=== PATIENT | male | born 1965 ===

== ENCOUNTER 2016-09-23 21:53 | Emergency (ER) | payer OTHER ==
[2016-09-23 21:59] VITALS: BP 112/79; PULSE 89; TEMP 98.6; BMI 32.3
--- NOTE | 2016-09-23 22:38 | PDOC ---
History of Present Illness - General Chief Complaint: Pain Stated Complaint: RT 4TH TOE BRUISING Time Seen by Provider: 09/23/16 22:35 History Source: Patient Exam Limitations: No Limitations - History of Present Illness Initial Comments: 09/23/16 22:52 This is a 51-year-old male who comes in complaining of right foot fourth toe injury and pain. Patient stubbed his toe approximately 2 nights ago. Patient denies any other injury. Patient said it is gotten purple and he is concerned that it might be broken. PAST MEDICAL HISTORY: no significant history PAST SURGICAL HISTORY: no significant history FAMILY HISTORY: no pertinant history SOCIAL HISTORY: Pt lives with family and is employed. MEDICATIONS: reviewed ALLERGIES: As per nursing notes Review of Systems General: No fevers or chills, no weakness, no weight loss HEENT: No change in vision. No sore throat,. No ear pain CardioVascular: No chest pain or shortness of breath Respiratory:No cough, or wheezing. Gastrointestinal: no nausea, vomitting, diarrhea or constipation, No rectal bleeding Genitourinary: No dysuria, hematuria, or frequency Musculoskeletal: Right fourth toe as per history of present illness Neurologic: No headache, vertigo, dizziness or loss of consciousness Psychiatric: nor depression Skin: No rashes or easy bruising Endocrine: no increased thirst or abnormal weight change Allergic: no skin or latex allergy All other systems reviewed and normal GENERAL: The patient is awake, alert, and fully oriented, in no acute distress. HEAD: Normal with no signs of trauma. EYES: Pupils equal, round and reactive to light, extraocular movements intact, sclera anicteric, conjunctiva clear. EXTREMITIES: Right first toe there is moderate amount of ecchymosis with some tenderness over the mid section of the toe. Neurovascular is intact. There is decreased range of motion secondary to pain and swelling. NEUROLOGICAL: Normal speech, normal gait. PSYCH: Normal mood, normal affect. SKIN: Warm, Dry, normal turgor, no rashes or lesions noted. X-ray shows No acute fracture dislocation Assessment and plan: This is a 51-year-old male who comes in complaining of pain in his right fourth toe. Patient had x-ray was negative for any fracture. Patient's toe was ronna taped and he was discharged home. Past History - Past Medical History Allergies/Adverse Reactions: Allergies Allergy/AdvReac Type Severity Reaction Status Date / Time No Known Allergies Allergy Unverified 09/23/16 21:54 Home Medications: Ambulatory Orders NK [No Known Home Medication] 09/23/16 Other medical history: DENIES - Psycho/Social/Smoking Cessation Hx Anxiety: No Suicidal Ideation: No Smoking History: Never smoked *Physical Exam - Vital Signs Last Vital Signs Temp Pulse Resp BP Pulse Ox 98.6 F 89 16 112/79 98 09/23/16 21:57 09/23/16 21:57 09/23/16 21:57 09/23/16 21:57 09/23/16 21:57 *DC/Admit/Observation/Transfer Diagnosis at time of Disposition: Contusion of fourth toe of right foot Qualifiers: Encounter type: initial encounter Qualified Code(s): S90.121A - Contusion of right lesser toe(s) without damage to nail, initial encounter - Discharge Dispostion Disposition: HOME Condition at time of disposition: Stable Admit: No - Patient Instructions Additional Instructions: Tylenol or Motrin as needed for pain Ronna tape the toe for comfort as needed Wear open toed shoes as much as possible until toe is better Return to the emergency department immediately with ANY new, persistent or worsening symptoms. Continue any medications as previously prescribed by your physician. You should follow up with your primary doctor as soon as possible regarding today's emergency department visit. . Please make sure your doctor reviews the results of your emergency evaluation. Thank you for coming to the Emergency Department today for your care. It was a pleasure to see you today. Please note that your evaluation is INCOMPLETE until you follow-up with your doctor.
== END 2016-09-23 23:09 | disposition home or self-care (01) ==
LOC: FER 21:53
PROC: 2W3UXYZ Immobilization of Right Toe using Other Device (ICD-10-PCS; principal; 2016-09-23)
DX: S90.121A Contusion of right lesser toe(s) without damage to nail, initial encounter (principal); W22.01XA Walked into wall, initial encounter; Y93.89 Activity, other specified; Y92.9 Unspecified place or not applicable
CPT/HCPCS: 73660-TC; 99281-25

== ENCOUNTER 2020-01-14 08:08 | Inpatient (IN) | payer OTHER ==
[2020-01-14] MEDS ORDERED: MAG HYDROX/AL HYDROX/SIMETH -MYLANTA- ORAL SUSPENSION PO ONE (08:20)
[2020-01-14] MEDS ORDERED: FAMOTIDINE 20 MG/50 ML IVPB 20 MG in PREMIX 50 IVPB ONE (08:20)
[2020-01-14] MEDS ORDERED: ONDANSETRON 4 MG/2 ML VIAL IVPB ONE (08:25)
--- NOTE | 2020-01-14 08:25 | PDOC ---
History of Present Illness - General Chief Complaint: Nausea/Vomiting Stated Complaint: VOMITING SINCE 4 AM Time Seen by Provider: 01/14/20 08:19 History Source: Patient Exam Limitations: No Limitations - History of Present Illness Travel History: No Initial Comments: 01/14/20 08:21 54y M hx of HIV (on genvoya), kidney stones, acid reflux presents with complaint of abdominal pain since approx 4am. The patient states he was at a bbq yesterday, was feeling ok, in the evening, had a 'heaviness' like a 'stone sitting in his stomach' but was otherwise ok. Last night approx 4am, the pt had epigastric/RUQ abd pain associated with nbnb n/v. Pt states the pain is associated with diaphoresis, denies any associated sob, fever/chills, lower abd pain, back pain, leg edema. Pt has a hx of kidney stones and reflux and states this is different. he tried taking omeprazole without significant improvement at home. 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 Past History - Medical History Allergies/Adverse Reactions: Allergies Allergy/AdvReac Type Severity Reaction Status Date / Time shellfish derived Allergy Intermediate Vomiting Verified 01/14/20 08:10 lactose AdvReac Intermediate Vomiting Verified 01/14/20 08:11 Home Medications: Ambulatory Orders NK [No Known Home Medication] 01/14/20 - Psycho-Social/Smoking History Smoking History: Never smoked Review of Systems - Review of Systems Able to Perform ROS?: Yes Comments:: 01/14/20 08:28 Constitutional - +diaphoressi no reported Fever, Chills, HEENT: no reported vision changes, sore throat Respiratory: no reported cough, sob, hemoptysis Cardiac: no reported chest pain, palpitations, light headedness, leg swelling Abd/GI: +_abd pain, nausea, vomiting, no reported blood per rectum, melena, diarrhea : no reported dysuria, frequency, discharge Musculskelatal - no reported back pain, joint swelling skin - no reported bruising, erythema, rash neurological: no reported headache, numbness, focal weakness, tingling, ataxia, hematologic: no reported easy bruising, easy bleeding *Physical Exam - Physical Exam 01/14/20 08:28 GENERAL: The patient is awake, alert, and fully oriented, Nontoxic -appears to be uncomfortable, diaphoretic HEAD: Normocephalic, atraumatic. EYES: extraocular movements intact, sclera anicteric, conjunctiva clear. ENT: Normal voice, Moist mucous membranes. NECK: Normal range of motion, supple LUNGS: Breath sounds equal, clear to auscultation bilaterally. No wheezes, no rhonchi, no rales. HEART: Regular rate and rhythm, normal S1 and S2 without murmur, rub or gallop. ABDOMEN: mild RUQ tenderness, No guarding, no rebound. No CVA tenderness EXTREMITIES: Normal range of motion, no edema. NEUROLOGICAL: No facial assymetry, Normal speech, PSYCH: Normal mood, normal affect. SKIN: Warm, Dry, normal turgor, Heart Score/ECG Review - ECG Impressions Comment:: 01/14/20 08:29 Twelve-lead EKG was performed and reviewed by me. There is normal sinus rhythm with a Rate of 53 The axis is normal. The intervals are normal. There is normal R wave progression No ST wave changes suggestive of acute ischemia Impression:Sinus bradycardia ED Treatment Course - LABORATORY CBC & Chemistry Diagram: 01/14/20 08:45 01/14/20 08:45 Medical Decision Making - Medical Decision Making 01/14/20 08:29 54 history of HIV presents with approximately 4 hours of epigastric/right upper quadrant constant sharp discomfort associated nausea vomiting. On exam patient appears uncomfortable, EKG was immediately obtained upon arrival That appeared to be sinus bradycardia without signs of acute ischemia Suspect possible gallstones versus gastritis consider possible ACS Will obtain a blood work, EKG, will treat with Pepcid/maalox will obtain RUQ US 01/14/20 11:13 pts US noted for gall stone pt still in pain will give another dose of morphine may need to be admitted for pain control and surgical consult will reassess after this dose of morphine 01/14/20 15:29 case olga oakes and linda fuentes accepted for admission and surgical evaluation for persistent pain secondary to cholelithasis Case discussed in detail with admitting physician including history, physical exam and ancillary studies. Admitting physician has assumed care for the patient, will follow all pending diagnostics and will complete the evaluation and treatment. Discharge - Discharge Information Problems reviewed: Yes Clinical Impression/Diagnosis: Intractable pain Cholelithiasis Qualifiers: Cholelithiasis location: gallbladder and bile duct Cholecystitis presence: without cholecystitis Biliary obstruction: without biliary obstruction Qualified Code(s): K80.70 - Calculus of gallbladder and bile duct without cholecystitis without obstruction Condition: Stable - Admission Yes - Follow up/Referral - Patient Discharge Instructions - Post Discharge Activity
[2020-01-14] MEDS ORDERED: SODIUM CHLORIDE 1,000 ML IV ONE ×2 (08:45→11:12)
[2020-01-14] MEDS ORDERED: FAMOTIDINE 20 MG/50 ML IVPB 20 MG/50 ML MG IVPB ONE (08:48)
[2020-01-14] MEDS ORDERED: ONDANSETRON 4 MG/2 ML VIAL ONE (08:48)
[2020-01-14] MEDS ORDERED: MAG HYDROX/AL HYDROX/SIMETH 30 ML UNIT-DOSE CUP ONE (08:48)
[2020-01-14] MEDS ORDERED: KETOROLAC TROMETHAMINE 30 MG/1 ML VIAL ONE (08:57)
[2020-01-14] MEDS ORDERED: KETOROLAC TROMETHAMINE 30 MG/1 ML VIAL IVPUSH ONE (08:57)
[2020-01-14 09:19] LABS: BASO % 0.6 % (0-2.0); EOS % 2.1 % (0-4.5)
[2020-01-14 09:23] LABS: HEMATOCRIT 45.1 % (35.4-49); HEMOGLOBIN 15.5 GM/dl (11.7-16.9); MCH 31.4 pg (25.7-33.7); MCHC 34.3 g/dl (32.0-35.9); MEAN CELL VOLUME 91.4 fl (80-96); MEAN PLT VOLUME 8.2 fl (7.5-11.1); MONO % 5.8 % (3.8-10.2); NEUT % 67.5 % (42.8-82.8); PLATELET COUNT 225 K/MM3 (134-434); RBC 4.93 M/mm3 (4.00-5.60); RDW 11.9 % (11.9-15.9); WHITE BLOOD COUNT 7.8 K/mm3 (4.0-10.8)
[2020-01-14 09:24] LABS: ALBUMIN 4.1 g/dl (3.4-5.0); BILIRUBIN,TOTAL 0.5 mg/dl (0.2-1); CALCIUM 9.2 mg/dl (8.5-10); CREATININE 0.9 mg/dl (0.55-1.3); POTASSIUM 3.8 mmol/L (3.5-5.1); TOT PROT 6.9 g/dl (6.4-8.2)
[2020-01-14] MEDS ORDERED: morphine CARPU-JECT 2 MG/1 ML DISP.SYRIN IVPUSH ONE (09:37)
[2020-01-14] MEDS ORDERED: morphine SULFATE 4 MG/ML VIAL ONE ×2 (09:41→11:16)
[2020-01-14 10:30] LABS: AMORP URATES 1+ /hpf (NONE SEEN); EPITHELIAL CELLS FEW /hpf; URINE MUCUS 1+
[2020-01-14] MEDS ORDERED: morphine CARPU-JECT 4 MG/1 ML DISP.SYRIN IVPUSH ONE (11:09)
[2020-01-14] MEDS ORDERED: ONDANSETRON 4 MG/2 ML VIAL IVPUSH PRN (15:52)
[2020-01-14] MEDS ORDERED: morphine CARPU-JECT 2 MG/1 ML DISP.SYRIN IVPUSH PRN (15:52)
--- NOTE | 2020-01-14 15:52 | HP ---
CHIEF COMPLAINT: Abdominal pain PCP: [facility] HISTORY OF PRESENT ILLNESS: This is a 54-year-old male with well-controlled HIV (VL undetectable, on HAART), kidney stones, and GERD who presented to the [place] ED today with new onset of abdominal pain. He denies fevers/chills. He has not had an appetite. He denies n/v. Smoking: Former smoker, quit 5 years ago Alcohol: None Illicits: None ER course was notable for: (1) WBC within normal limits at 7.8 (2) LFTs within normal limits (3) Ultrasound demonstrating 2.1cm gallstone at the level of the gallbladder neck with sludge (4) Pain intractable - little relief with multiple doses of morphine Recent Travel: None PAST MEDICAL HISTORY: As above PAST SURGICAL HISTORY: None Social History: Works in shelter in [employer] Allergies shellfish derived Allergy (Intermediate, Verified 01/14/20 08:10) Vomiting lactose Adverse Reaction (Intermediate, Verified 01/14/20 08:11) Vomiting HOME MEDICATIONS: Home Medications Medication Instructions Recorded NK [No Known Home Medication] 01/14/20 REVIEW OF SYSTEMS CONSTITUTIONAL: Diaphoresis, loss of appetite Absent: fever, chills, weight change HEENT: Absent: rhinorrhea, nasal congestion, throat pain, throat swelling, difficulty swallowing, mouth swelling, ear pain, eye pain, visual changes CARDIOVASCULAR: Absent: chest pain, syncope, palpitations, irregular heart rate, lightheadedness, peripheral edema RESPIRATORY: Absent: cough, shortness of breath, dyspnea with exertion, orthopnea, wheezing, stridor, hemoptysis GASTROINTESTINAL: See HPI GENITOURINARY: Absent: dysuria, frequency, urgency, hesitancy, hematuria, flank pain, genital pain MUSCULOSKELETAL: Absent: myalgia, arthralgia, joint swelling, back pain, neck pain SKIN: Absent: rash, itching, pallor HEMATOLOGIC/IMMUNOLOGIC: Absent: easy bleeding, easy bruising, lymphadenopathy, frequent infections ENDOCRINE: Absent: unexplained weight gain, unexplained weight loss, heat intolerance, cold intolerance NEUROLOGIC: Absent: headache, focal weakness or paresthesias, dizziness, unsteady gait, seizure, mental status changes, bladder or bowel incontinence PSYCHIATRIC: Absent: anxiety, depression, suicidal or homicidal ideation, hallucinations. PHYSICAL EXAMINATION Vital Signs - 24 hr 01/14/20 01/14/20 01/14/20 08:09 10:20 10:28 Temperature 97.6 F 97.9 F Pulse Rate 52 L Pulse Rate [ 58 L Radial] Respiratory 20 16 Rate Blood Pressure 156/98 140/90 Blood Pressure [Left Arm] O2 Sat by Pulse 100 Oximetry (%) 01/14/20 01/14/20 11:53 14:30 Temperature Pulse Rate Pulse Rate [ 58 L 57 L Radial] Respiratory 16 Rate Blood Pressure Blood Pressure 141/82 135/83 [Left Arm] O2 Sat by Pulse 98 98 Oximetry (%) GENERAL: Awake, alert, and fully oriented, in no acute distress. HEAD: Normal with no signs of trauma. EYES: Pupils equal, round and reactive to light, extraocular movements intact, sclera anicteric, conjunctiva clear. No lid lag. EARS, NOSE, THROAT: Ears normal, nares patent, oropharynx clear without exudates. Moist mucous membranes. NECK: Normal range of motion, supple without lymphadenopathy, JVD, or masses. LUNGS: Breath sounds equal, clear to auscultation bilaterally. No wheezes, and no crackles. No accessory muscle use. HEART: Regular rate and rhythm, normal S1 and S2 without murmur, rub or gallop. ABDOMEN: Soft, not distended, tender to gentle palpation in RUQ without guarding or rebound tenderness. MUSCULOSKELETAL: Normal range of motion at all joints. No bony deformities or tenderness. No CVA tenderness. UPPER EXTREMITIES: 2+ pulses, warm, well-perfused. No cyanosis. No clubbing. No peripheral edema. LOWER EXTREMITIES: 2+ pulses, warm, well-perfused. No calf tenderness. No peripheral edema. NEUROLOGICAL: Cranial nerves II-XII intact. Normal speech. Normal gait. PSYCHIATRIC: Cooperative. Good eye contact. Appropriate mood and affect. SKIN: Warm, dry, normal turgor, no rashes or lesions noted, normal capillary refill. Laboratory Results - last 24 hr 01/14/20 01/14/20 01/14/20 08:45 08:45 08:45 WBC 7.8 RBC 4.93 Hgb 15.5 Hct 45.1 MCV 91.4 MCH 31.4 MCHC 34.3 RDW 11.9 Plt Count 225 MPV 8.2 Absolute Neuts (auto) 5.2 Neutrophils % 67.5 Lymphocytes % 24.0 Monocytes % 5.8 Eosinophils % 2.1 Basophils % 0.6 Sodium 135 L Potassium 3.8 Chloride 104 Carbon Dioxide 20 L Anion Gap 11 BUN 23.0 H Creatinine 0.9 Est GFR (CKD-EPI)AfAm 113.41 Est GFR (CKD-EPI)NonAf 97.85 Random Glucose 162 H Calcium 9.2 Total Bilirubin 0.5 AST 37 ALT 57 Alkaline Phosphatase 67 Creatine Kinase 842 H Creatine Kinase Index 0.7 CK-MB (CK-2) 6.3 H Troponin I < 0.03 Total Protein 6.9 Albumin 4.1 Lipase 159 Urine Color Urine Appearance Urine pH Urine Protein Urine Glucose (UA) Urine Ketones Urine Blood Urine Nitrite Urine Bilirubin Urine Urobilinogen Ur Leukocyte Esterase Urine RBC Urine WBC Ur Transition Epith Cell Amorphous Urates Urine Casts Urine Mucus 01/14/20 10:00 WBC RBC Hgb Hct MCV MCH MCHC RDW Plt Count MPV Absolute Neuts (auto) Neutrophils % Lymphocytes % Monocytes % Eosinophils % Basophils % Sodium Potassium Chloride Carbon Dioxide Anion Gap BUN Creatinine Est GFR (CKD-EPI)AfAm Est GFR (CKD-EPI)NonAf Random Glucose Calcium Total Bilirubin AST ALT Alkaline Phosphatase Creatine Kinase Creatine Kinase Index CK-MB (CK-2) Troponin I Total Protein Albumin Lipase Urine Color Yellow Urine Appearance Clear Urine pH 5.5 Urine Protein 1+ H Urine Glucose (UA) Negative Urine Ketones Negative Urine Blood Negative Urine Nitrite Negative Urine Bilirubin Negative Urine Urobilinogen 0.2 Ur Leukocyte Esterase Negative Urine RBC 0-2 Urine WBC 0-2 Ur Transition Epith Cell Few Amorphous Urates 1+ Urine Casts Granular 0-1 Urine Mucus 1+ ASSESSMENT/PLAN: 54-year-old male with cholelithiasis and intractable pain. #Cholelithiasis with intractable pain -NPO -IVF -Zofran 4mg q6h prn nausea -Morphine 2mg IVP q4h prn pain -Discussed with Dr. Pope - can take to OR at [facility] in morning; transfer requested #2 HIV, no active issues -Continue Genoya when resumes PO #3 DVT ppx -Early ambulation -SCDs Dispo: Admit for inpatient services. To [facility] for OR. Family Medical History Family History: Unremarkable Problem List - Problem (1) HIV (human immunodeficiency virus infection) Code(s): B20 - HUMAN IMMUNODEFICIENCY VIRUS [HIV] DISEASE (2) Cholelithiasis Code(s): K80.20 - CALCULUS OF GALLBLADDER W/O CHOLECYSTITIS W/O OBSTRUCTION Qualifiers: Cholelithiasis location: gallbladder and bile duct Cholecystitis presence: without cholecystitis Biliary obstruction: without biliary obstruction Qualified Code(s): K80.70 - Calculus of gallbladder and bile duct without cholecystitis without obstruction (3) Intractable pain Code(s): R52 - PAIN, UNSPECIFIED Visit type - Emergency Visit Emergency Visit: Yes Care time: The patient presented to the Emergency Department on the above date and was hospitalized for further evaluation of their emergent condition. - New Patient This patient is new to me today: Yes Date on this admission: 01/14/20 - Critical Care Critical Care patient: No
[2020-01-14] MEDS ORDERED: CEFTRIAXONE 1 GM in DEXTROSE 5%-WATER - 50 ML IVPB SCH (17:15)
[2020-01-14] MEDS ORDERED: MORPHINE SULFATE 2 MG/ML VIAL IVPUSH PRN (17:39)
--- NOTE | 2020-01-14 17:49 | EKG ---
Test Reason : Blood Pressure : / mmHG Vent. Rate : 053 BPM Atrial Rate : 053 BPM P-R Int : 178 ms QRS Dur : 106 ms QT Int : 424 ms P-R-T Axes : 002 043 032 degrees QTc Int : 397 ms SINUS BRADYCARDIA WITH SINUS ARRHYTHMIA OTHERWISE NORMAL ECG NO PREVIOUS ECGS AVAILABLE Confirmed by MARCELA FIELDS MD ([id number]) on 01/14/2020 5:49:09 PM Referred By: JACQUI OLIVEIRA Confirmed By:MARCELA FIELDS MD
[2020-01-14 17:57] VITALS: BMI 33.7
[2020-01-14] MEDS ORDERED: cefTRIAXone SODIUM 1 GM VIAL ONE (18:30)
[2020-01-14] MEDS ORDERED: DEXTROSE 5%-WATER - 50 ML IVPB ONE (18:30)
[2020-01-14] MEDS: CEFTRIAXONE 1 GM in DEXTROSE 5%-WATER - 50 ML IVPB SCH (18:35)
[2020-01-14] MEDS ORDERED: MELATONIN 5 MG TABLETS PO ONE (21:42)
[2020-01-15] MEDS ORDERED: MIDAZOLAM HCL 2 MG/2 ML SINGLE DOSE VIAL ONE (10:51)
[2020-01-15] MEDS ORDERED: ROCURONIUM BROMIDE 50 MG/5 ML SYRINGE ONE (10:55)
--- NOTE | 2020-01-15 10:58 | CONSULT ---
- Consultation REQUESTING PROVIDER: CONSULT REQUEST: We have been asked to surgically evaluate this patient for acute cholecystitis PCP:Sharri Jackson NP HISTORY OF PRESENT ILLNESS: 54 y/o M w/ PMHx HIV (VL undetectable, on HAART), h/o kidney stones, and GERD transferred from [facility] after presenting for evaluation for abdominal pain. Pt reports he was visiting his friend over the weekend where he ate a substantial amount of bbq food. States he woke around 4am with "severe" ruq abdominal pain. Reports 2 episodes of vomiting (food he had eaten) and then some mild improvement in pain. Pt went to work yesterday, however left shortly after arriving due to worsening of pain. Denies n/v/d currently. Has not eaten since. U/S done revealing GB sludge as well as GB stones. PMHx: as above PSHx: lithotripsy 2018 Home Medications Medication Instructions Recorded NK [No Known Home Medication] 01/14/20 Allergies Allergy/AdvReac Type Severity Reaction Status Date / Time shellfish derived Allergy Intermediate Vomiting Verified 01/14/20 08:10 lactose AdvReac Intermediate Vomiting Verified 01/14/20 08:11 REVIEW OF SYSTEMS: CONSTITUTIONAL: Absent: fever, chills, diaphoresis CARDIOVASCULAR: Absent: chest pain, syncope RESPIRATORY: Absent: cough, shortness of breath GASTROINTESTINAL: (+)abdominal pain, (-)abdominal distension, (+) nausea, (+)vomiting, (-) diarrhea, (-)constipation GENITOURINARY: Absent: dysuria, frequency, urgency PHYSICAL EXAM: GENERAL: Awake, alert, and fully oriented, in no acute distress. HEAD: Normal with no signs of trauma. LUNGS: No accessory muscle use on RA ABDOMEN: Soft, + ttp in ruq, not distended, hypoactive bowel sounds, no guarding, no rebound LOWER EXTREMITIES: warm, well-perfused. No peripheral edema. Vital Signs Temperature 98.7 F 01/15/20 05:00 Pulse Rate 76 01/15/20 05:00 Respiratory Rate 18 01/15/20 05:00 Blood Pressure 108/59 L 01/15/20 05:00 O2 Sat by Pulse Oximetry (%) 82 L 01/15/20 05:00 Lab Results WBC 7.8 K/mm3 (4.0-10.8) 01/14/20 08:45 RBC 4.93 M/mm3 (4.00-5.60) 01/14/20 08:45 Hgb 15.5 GM/dl (11.7-16.9) 01/14/20 08:45 Hct 45.1 % (35.4-49) 01/14/20 08:45 MCV 91.4 fl (80-96) 01/14/20 08:45 MCHC 34.3 g/dl (32.0-35.9) 01/14/20 08:45 RDW 11.9 % (11.9-15.9) 01/14/20 08:45 Plt Count 225 K/MM3 (134-434) 01/14/20 08:45 Sodium 135 mmol/L (136-145) L 01/14/20 08:45 Potassium 3.8 mmol/L (3.5-5.1) 01/14/20 08:45 Chloride 104 mmol/L (98-107) 01/14/20 08:45 Carbon Dioxide 20 mmol/L (21-32) L 01/14/20 08:45 Anion Gap 11 MMOL/L (8-16) 01/14/20 08:45 BUN 23.0 mg/dl (7-18) H 01/14/20 08:45 Creatinine 0.9 mg/dl (0.55-1.3) 01/14/20 08:45 Random Glucose 162 mg/dl (74-106) H 01/14/20 08:45 Calcium 9.2 mg/dl (8.5-10) 01/14/20 08:45 A/P: 54 y/o M w/ PMHx HIV (VL undetectable, on HAART), h/o kidney stones, and GERD transferred from [facility] after presenting for evaluation for abdominal pain. U/S done revealing GB sludge as well as GB stones. pt w/ cholelithiasis/acute cholecystitis Plan for lap galina this AM pt aware of plan and agrees d/w attending Dr Pope
[2020-01-15] MEDS ORDERED: ceFAZolin SODIUM 1 GM VIAL IVPB ONE (11:00)
[2020-01-15] MEDS ORDERED: ceFAZolin SODIUM 1 GM VIAL ONE (11:14)
[2020-01-15] MEDS ORDERED: PROPOFOL 20 ML ONE ×2 (11:17)
[2020-01-15] MEDS ORDERED: KETOROLAC TROMETHAMINE 30 MG/1 ML VIAL ONE (11:18)
[2020-01-15] MEDS ORDERED: DEXAMETHASONE SOD PHOSPHATE 4 MG/1 ML VIAL ONE (11:18)
[2020-01-15] MEDS ORDERED: PHENYLEPHRINE HCL 10 MG/1 ML SINGLE DOSE VIAL ONE (11:27)
[2020-01-15] MEDS ORDERED: NEOSTIGMINE METHYLSULFATE 0.5 MG/ML - 10 ML MDV ONE (11:27)
[2020-01-15] MEDS ORDERED: GLYCOPYRROLATE 0.2 MG/1 ML VIAL ONE (11:28)
[2020-01-15] MEDS ORDERED: SODIUM CHLORIDE 0.9% P/F 10 ML VIAL IJ ONE (11:28)
[2020-01-15] MEDS ORDERED: BUPIVACAINE HCL/PF 0.5% (5 MG/ML) 30 ML VIAL IJ ONE (11:38)
--- NOTE | 2020-01-15 12:46 | OP ---
Operative Note - Note: Operative Date: 01/15/20 Pre-Operative Diagnosis: acute cholecystitis/cholelithiasis Operation: laparoscopic cholecystectomy Findings: acute cholecystitis and cholelithiasis Post-Operative Diagnosis: Same as Pre-op Surgeon: Mickey Pope Senior Manager Creative Services: Eyad Ledesma Anesthesiologist/MOCK UP BUILDER: Jacki Casas Anesthesia: General Specimens Removed: gallbladder and contents Estimated Blood Loss (mls): 20 Drains & Tubes with Location: 10 mm MAR in the gallbladder fossa
--- NOTE | 2020-01-15 13:21 | SURG ---
Surgery Adjunct Nursing Faculty Note Adjunct Nursing Faculty: Eyad Ledesma PA-C (Suzy) Date of Service: 01/15/20 Diagnosis: acute cholecystitis/cholelithiasis Procedure: Operation: laparoscopic cholecystectomy I was present for the entirety of the operative procedure. For further detail, please refer to operative report. Visit type - Case Type Case Type: ED Admission - Emergency Emergency Visit: Yes ED Registration Date: 01/14/20 Care time: The patient presented to the Emergency Department on the above date and was hospitalized for further evaluation of their emergent condition. - New patient This patient is new to me today: Yes Date on this admission: 01/15/20 - Critical Care Critical Care patient: No
--- NOTE | 2020-01-15 13:27 | PN ---
Physical Exam: SUBJECTIVE: Patient seen and examined. denies pain. only feels sore. OBJECTIVE: Patient is a 54 year old male with a significant past medical history of HIV (VL undetectable, on HAART), kidney stones, and GERD who presented to the [place] ED with new onset of abdominal pain. He denies fevers/chills. He has not had an appetite. He denies n/v. U/S done revealing GB sludge as well as GB stones. and GERD. Patient is flound to have cholelithiasis/acute cholecystitis and is now s/p lap galina with Dr. Pope. resting, appears comfortable s/p lap galina Vital Signs Period Temp Pulse Resp BP Sys/Feliciano Pulse Ox Last 24 Hr 98.7 F-98.8 F 57-77 16-20 108-145/59-83 82-98 GENERAL: The patient is awake, alert, and fully oriented, in no acute distress. HEAD: Normal with no signs of trauma. EYES: PERRL, extraocular movements intact, sclera anicteric, conjunctiva clear. No ptosis. ENT: Ears normal, nares patent, oropharynx clear without exudates, NECK: Trachea midline, full range of motion, supple. LUNGS: Breath sounds equal, clear to auscultation bilaterally HEART: Regular rate and rhythm ABDOMEN: Soft, nontender, nondistended, surgical sites c/d/i quintin drain in place with sero sang drainage EXTREMITIES: no edema. NEUROLOGICAL: Normal speech, gait not observed. PSYCH: Normal mood, normal affect. SKIN: Warm, dry, normal turgor, no rashes or lesions noted Active Medications Generic Name Dose Route Start Last Admin Trade Name Freq PRN Reason Stop Dose Admin Fentanyl 50 mcg 01/15/20 13:00 Sublimaze Injection - IVPUSH [id number] PRN PAIN-PACU ORDER X 4 DOSES ONLY Metronidazole 500 mg in 100 mls @ 100 mls/hr 01/14/20 18:00 01/15/20 10:14 Flagyl 500mg Premixed Ivpb - IVPB 01/16/20 17:59 100 mls/hr Q8H-IV KORINA Administration Morphine Sulfate 2 mg 01/14/20 17:39 Morphine Sulfate IVPUSH Q4H PRN PAIN LEVEL 4 - 6 Ondansetron HCl 4 mg 01/14/20 15:52 Zofran Injection IVPUSH Q6H PRN NAUSEA ASSESSMENT/PLAN: Problem List - Problems (1) Cholelithiasis Assessment/Plan: s/p nicki mojica with Dr. Pope. Drain in place Post op care: antibiotics, monitoring vitals and labs incentive spirometer early ambulation monitor drain output pain management bowel regimen surgery follow up Code(s): K80.20 - CALCULUS OF GALLBLADDER W/O CHOLECYSTITIS W/O OBSTRUCTION Qualifiers: Cholelithiasis location: gallbladder and bile duct Cholecystitis presence: without cholecystitis Biliary obstruction: without biliary obstruction Qualified Code(s): K80.70 - Calculus of gallbladder and bile duct without cholecystitis without obstruction (2) HIV (human immunodeficiency virus infection) Assessment/Plan: continue HAART therapy Code(s): B20 - HUMAN IMMUNODEFICIENCY VIRUS [HIV] DISEASE (3) Intractable pain Assessment/Plan: monitor pain Code(s): R52 - PAIN, UNSPECIFIED Visit type - Emergency Visit Emergency Visit: Yes ED Registration Date: 01/14/20 Care time: The patient presented to the Emergency Department on the above date and was hospitalized for further evaluation of their emergent condition. - New Patient This patient is new to me today: Yes Date on this admission: 01/21/20 - Critical Care Critical Care patient: No - Discharge Referral Referred to [facility] Med [facility] No
[2020-01-15] MEDS: CEFTRIAXONE 1 GM in DEXTROSE 5%-WATER - 50 ML IVPB SCH (14:31)
[2020-01-15 18:05] LABS: BASO % 0.1 % (0-2.0); EOS % 0.3 % (0-4.5); HEMATOCRIT 42.1 % (35.4-49); HEMOGLOBIN 14.1 GM/dL (11.7-16.9); MCH 30.1 pg (25.7-33.7); MCHC 33.4 g/dl (32.0-35.9); MEAN CELL VOLUME 90.2 fl (80-96); MEAN PLT VOLUME 7.9 fl (7.5-11.1); MONO % 2.7 % (3.8-10.2); NEUT % 84.9 % (42.8-82.8); PLATELET COUNT 191 K/MM3 (134-434); RBC 4.67 M/mm3 (4.00-5.60); RDW 12.8 % (11.9-15.9); WHITE BLOOD COUNT 7.8 K/mm3 (4.0-10.0)
[2020-01-15 18:17] LABS: INR 1.01 (0.83-1.09); PROTHROMBIN TIME (PATIENT) 11.9 SEC (9.7-13.0)
[2020-01-15 18:39] LABS: ALBUMIN 3.4 g/dl (3.4-5.0); BILIRUBIN,TOTAL 1.1 mg/dL (0.2-1); BLOOD UREA NITROGEN 17.1 mg/dL (7-18); CALCIUM 8.4 mg/dL (8.5-10.1); CREATININE 0.9 mg/dL (0.55-1.3); MAGNESIUM 2.3 mg/dL (1.8-2.4); POTASSIUM 4.1 mmol/L (3.5-5.1); TOT PROT 6.4 g/dl (6.4-8.2)
[2020-01-15] MEDS ORDERED: ONDANSETRON 4 MG/2 ML VIAL IVPUSH PRN (19:13)
[2020-01-15] MEDS ORDERED: oxyCODONE HCL 5 MG TABLET PO PRN (19:13)
--- NOTE | 2020-01-16 08:43 | PN ---
Progress Note (short form) - Note Progress Note: Surgery: Pt without any complaints today. Tolerated a diet. No nausea or emesis. No BM noted. Vital Signs Period Temp Pulse Resp BP Sys/Feliciano Pulse Ox Last 24 Hr 98.4 F-99.2 F 58-95 16-18 120-144/67-90 93-99 MAR:65ml-removed with the tip intact GEN: A&0x3, NAD ABD: soft, non-distended, inc tenderness. Inc c/d/i. LE: no calf tenderness b/l A/P: 54 yo male s/p lap galina, POD#1 Drain removed this am Diet as tolerated Pain medications as needed F/u am labs D/w Dr Pope PT to f/u in the office next week
[2020-01-16 14:00] LABS: BASO % 0.2 % (0-2.0); EOS % 1.1 % (0-4.5); HEMATOCRIT 41.3 % (35.4-49); HEMOGLOBIN 13.8 GM/dL (11.7-16.9); LYMPH % 25.8 % (8-40); MCH 30.2 pg (25.7-33.7); MCHC 33.4 g/dl (32.0-35.9); MEAN CELL VOLUME 90.3 fl (80-96); MEAN PLT VOLUME 7.4 fl (7.5-11.1); MONO % 10.1 % (3.8-10.2); NEUT % 62.8 % (42.8-82.8); PLATELET COUNT 192 K/MM3 (134-434); RBC 4.58 M/mm3 (4.00-5.60); RDW 12.6 % (11.9-15.9); WHITE BLOOD COUNT 9.6 K/mm3 (4.0-10.0)
--- NOTE | 2020-01-16 14:06 | PATH ---
Surgical Pathology Report Patient Name: TOYA HERNANDEZ Med. Rec. #: [id number] /Age/Gender: 1965 (Age: 54) / M Account: [id number] Location: [address] [place] [address]/[facility] Taken: 01/15/2020 Received: 01/15/2020 Reported: 01/16/2020 Physicians: MD Sharri Costa F.NSantosh Specimen(s) Received GALLBLADDER Clinical History Gallstone Final Diagnosis GALLBLADDER, CHOLECYSTECTOMY: ACUTE AND CHRONIC CHOLECYSTITIS. CHOLELITHIASIS. Electronically Signed Amy Carrasquillo M.D. Gross Description Received in formalin, labeled "gallbladder," is an 8.5 x 2.8 x 2.5 cm. gallbladder with a 0.2 cm. in length portion of cystic duct attached. The outer surface is phillips-pink and varies from smooth to shaggy. The lumen contains phillips, tenacious bile as well as a 3.2 cm greatest dimension yellow, ovoid cholelith. The mucosa is hyperemic and focally eroded. The wall of the gallbladder ranges from 0.1-0.3 cm. in thickness. Pneumatic Press Hand sections are submitted in one cassette. /01/15/2020 saudi01/15/2020
[2020-01-16 14:30] LABS: ALBUMIN 3.2 g/dl (3.4-5.0); ALK PHOS 110 U/L (45-117); ANION GAP 8 MMOL/L (8-16); BILIRUBIN,TOTAL 0.4 mg/dL (0.2-1); BLOOD UREA NITROGEN 16.2 mg/dL (7-18); CALCIUM 8.5 mg/dL (8.5-10.1); CHLORIDE 105 mmol/L (98-107); CO2 28 mmol/L (21-32); CREATININE 1.1 mg/dL (0.55-1.3); GLUCOSE,RANDOM 126 mg/dL (74-106); MAGNESIUM 2.2 mg/dL (1.8-2.4); POTASSIUM 3.5 mmol/L (3.5-5.1); SGOT/AST 76 U/L (15-37); SGPT/ALT 197 U/L (13-61); SODIUM 140 mmol/L (136-145); TOT PROT 6.3 g/dl (6.4-8.2)
--- NOTE | 2020-01-16 14:41 | DS ---
Physical Exam: SUBJECTIVE: Patient seen and examined OBJECTIVE: Patient is a 54 year old male with a significant past medical history of HIV (VL undetectable, on HAART), kidney stones, and GERD who presented to the [facility] ED with new onset of abdominal pain. He denies fevers/chills. He has not had an appetite. He denies n/v. U/S done revealing GB sludge as well as GB stones. and GERD. Patient is flound to have cholelithiasis/acute cholecystitis and is now s/p lap galina with Dr. Pope. resting, appears comfortable s/p lap galina Vital Signs Period Temp Pulse Resp BP Sys/Feliciano Pulse Ox Last 24 Hr 98.4 F-99.2 F 59-95 16-18 120-144/67-90 93-98 PHYSICAL EXAM GENERAL: The patient is awake, alert, and fully oriented, in no acute distress. HEAD: Normal with no signs of trauma. EYES: PERRL, extraocular movements intact, sclera anicteric, conjunctiva clear. No ptosis. ENT: Ears normal, nares patent, oropharynx clear without exudates, NECK: Trachea midline, full range of motion, supple. LUNGS: Breath sounds equal, clear to auscultation bilaterally HEART: Regular rate and rhythm ABDOMEN: Soft, nontender, nondistended, surgical sites c/d/i quintin drain in place with sero sang drainage EXTREMITIES: no edema. NEUROLOGICAL: Normal speech, gait not observed. PSYCH: Normal mood, normal affect. SKIN: Warm, dry, normal turgor, no rashes or lesions noted LABS Laboratory Results - last 24 hr 01/14/20 01/15/20 01/15/20 12:35 17:00 17:00 WBC 7.8 RBC 4.67 Hgb 14.1 Hct 42.1 MCV 90.2 MCH 30.1 MCHC 33.4 RDW 12.8 Plt Count 191 MPV 7.9 Absolute Neuts (auto) 6.6 Neutrophils % 84.9 H Lymphocytes % 12.0 Monocytes % 2.7 L Eosinophils % 0.3 Basophils % 0.1 Nucleated RBC % 0 PT with INR 11.90 INR 1.01 Sodium Potassium Chloride Carbon Dioxide Anion Gap BUN Creatinine Est GFR (CKD-EPI)AfAm Est GFR (CKD-EPI)NonAf Random Glucose Hemoglobin A1c % Calcium Magnesium Total Bilirubin AST ALT Alkaline Phosphatase Creatine Kinase Total Protein Albumin COVID-19 (CHALINO) Not detected Blood Type Antibody Screen 01/15/20 01/15/20 01/15/20 17:00 17:00 17:00 WBC RBC Hgb Hct MCV MCH MCHC RDW Plt Count MPV Absolute Neuts (auto) Neutrophils % Lymphocytes % Monocytes % Eosinophils % Basophils % Nucleated RBC % PT with INR INR Sodium 139 Potassium 4.1 Chloride 106 Carbon Dioxide 26 Anion Gap 7 L BUN 17.1 Creatinine 0.9 Est GFR (CKD-EPI)AfAm 113.41 Est GFR (CKD-EPI)NonAf 97.85 Random Glucose 126 H Hemoglobin A1c % 5.5 Calcium 8.4 L Magnesium 2.3 Total Bilirubin 1.1 H AST 225 H ALT 283 H Alkaline Phosphatase 128 H Creatine Kinase Total Protein 6.4 Albumin 3.4 COVID-19 (CHALINO) Blood Type B POSITIVE Antibody Screen Negative 01/16/20 01/16/20 13:40 13:40 WBC 9.6 RBC 4.58 Hgb 13.8 Hct 41.3 MCV 90.3 MCH 30.2 MCHC 33.4 RDW 12.6 Plt Count 192 MPV 7.4 L Absolute Neuts (auto) 6.0 Neutrophils % 62.8 D Lymphocytes % 25.8 D Monocytes % 10.1 D Eosinophils % 1.1 D Basophils % 0.2 Nucleated RBC % 0 PT with INR INR Sodium 140 Potassium 3.5 Chloride 105 Carbon Dioxide 28 Anion Gap 8 BUN 16.2 Creatinine 1.1 Est GFR (CKD-EPI)AfAm 88.98 Est GFR (CKD-EPI)NonAf 76.77 Random Glucose 126 H Hemoglobin A1c % Calcium 8.5 Magnesium 2.2 Total Bilirubin 0.4 AST 76 H ALT 197 H Alkaline Phosphatase 110 Creatine Kinase 349 H Total Protein 6.3 L Albumin 3.2 L COVID-19 (CHALINO) Blood Type Antibody Screen HOSPITAL COURSE: Date of Admission:01/14/20 Date of Discharge: 01/16/20 Minutes to complete discharge: 45 Discharge Summary Problems reviewed: Yes Reason For Visit: GALLSTONE Current Active Problems Cholelithiasis (Acute) HIV (human immunodeficiency virus infection) (Acute) Intractable pain (Acute) Condition: Stable - Instructions Diet, Activity, Other Instructions: Dr. Pope Discharge Instructions Dear TOYA HERNANDEZ, Post Operative Instructions Physical activity Resume your normal everyday activity as tolerated no heavy lifting or exercise until seen by your surgeon. You may walk unlimited amounts of and climb stairs. You may resume driving the car when you feel safe and comfortable behind the wheel. Wound care You have a liquid bandage over your incisions. this will come off slowly on its own over the next few weeks. Please avoid picking at it if you notice it flaking. Allow it to come off on its own. You may shower starting tomorrow. When showering allow soap and water to run over the incision. Do not scrub, pat dry after showering. Diet There are no dietary restrictions. Eat healthy, high-fiber foods. Drink 6 to 8 glasses of liquid each day. This will assist in keeping your bowels are regular. Pain management You may take Tylenol or acetaminophen or Ibuprofen (for example, Motrin, Advil etc.) Any pain prescription medication ordered should be taken as prescribed for moderate to severe pain. Call Dr. Pope for any of the following: Severe pain not relieved by medication Fever of 101 or higher Excessive bleeding or drainage on dressing Inability to urinate Call the office at [phone] for a post operative appointment in 7 - 10 days. Referrals: Mickey Pope MD [Staff Physician] - 1 Week Disposition: HOME - Home Medications Comprehensive Discharge Medication List: Ambulatory Orders NK [No Known Home Medication] 01/14/20 Problem List - Problems (1) Cholelithiasis Assessment/Plan: s/p lap galina with Dr. Pope on 01/15/2020 Drain removed. outpatient follow up with Dr. Pope Code(s): K80.20 - CALCULUS OF GALLBLADDER W/O CHOLECYSTITIS W/O OBSTRUCTION Qualifiers: Cholelithiasis location: gallbladder and bile duct Cholecystitis presence: without cholecystitis Biliary obstruction: without biliary obstruction Qualified Code(s): K80.70 - Calculus of gallbladder and bile duct without cholecystitis without obstruction (2) HIV (human immunodeficiency virus infection) Assessment/Plan: continue HAART therapy Code(s): B20 - HUMAN IMMUNODEFICIENCY VIRUS [HIV] DISEASE (3) Intractable pain Assessment/Plan: oxycodone Code(s): R52 - PAIN, UNSPECIFIED This patient is new to me today: No Emergency Visit: Yes ED Registration Date: 01/14/20 Care time: The patient presented to the Emergency Department on the above date and was hospitalized for further evaluation of their emergent condition. Critical Care patient: No - Discharge Referral Referred to [facility] No
[2020-01-16 15:18] VITALS: BP 128/73; PULSE 76; TEMP 98.6
--- NOTE | 2020-01-17 10:53 | OP ---
DATE OF OPERATION: 01/15/2020 PREOPERATIVE DIAGNOSIS: Acute cholecystitis and cholelithiasis. POSTOPERATIVE DIAGNOSIS: Acute cholecystitis and cholelithiasis. PROCEDURE: Laparoscopic cholecystectomy. SURGEON: Mickey Pope MD FLIGHT CREW TIME CLERK: Eyad Ledesma PA-C ANESTHESIA: General. OPERATIVE FINDINGS: Acute cholecystitis and cholelithiasis and the rest of the findings were unremarkable. DESCRIPTION OF PROCEDURE: The patient was placed on the operating table in the supine position and after the induction of general anesthesia the patient's abdomen was prepped with ChloraPrep and draped in sterile fashion. A timeout was taken and pneumoperitoneum established above the umbilicus using a Veress needle. Once 15 mmHg of pressure were obtained, a 5-mm port was placed at the umbilicus and additional lateral 5-mm ports and a subxiphoid 12-mm port. Laparoscopy was carried out and the previously noted findings were observed. Dissection was begun at the neck of the gallbladder where the peritoneum was opened medially and laterally using blunt dissection and electrocautery. The cystic duct was identified coursing from the neck of the gallbladder towards the common bile duct and it was dissected using blunt dissection proximally and distally for length. Similarly, the artery was identified and dissected proximally and distally for length. A critical view of safety was taken and then the duct and the artery were clipped twice proximally and twice distally with large hemoclips. The duct and artery were then serially divided using Endoshears. Hemostasis was checked for and noted to be good and then the gallbladder was removed from the liver bed in a retrograde fashion using electrocautery. Prior to removal from the edge of the liver, hemostasis in the liver bed was again checked for and noted to be good and then the gallbladder removed from the edge of the liver, placed in an EndoCatch, and brought out through the subxiphoid port. Pneumoperitoneum was reestablished. Copious irrigation was carried out with saline. Hemostasis was verified again. A 10-mm Bruce-Trevizo drain was placed in the right hepatorenal fossa and brought out through 1 of the 5-mm ports and secured to the skin with 2-0 silk suture. All port sites were removed under laparoscopic vision without evidence of bleeding from the port sites. The port sites were infiltrated with 0.5% Marcaine and the skin edges reapproximated with 4-0 Biosyn in a subcuticular continuous fashion. Steri-Strips and Band-Aid dressings were placed. The drain was connected to bulb suction and then the patient aroused from general anesthesia and transferred to the postanesthesia care unit in stable condition, awake and alert. ESTIMATED BLOOD LOSS: 20 mL. REPLACEMENT: Crystalloid. DRAINS: One 10-mm Bruce-Trevizo in the gallbladder fossa. SPECIMEN: Gallbladder and contents to Pathology. I, Mickey Pope, was physically present in the operating room from the time the patient was placed on the operating table until he was transferred to the postanesthesia care unit in my accompaniment. MD BETHANY Garza/[id number] MTDD
== END 2020-01-16 15:55 | disposition home or self-care (01) | DRG 263 ==
LOC: FER 08:08 → J6S 17:40
PROVIDERS: ADMIT Internal Medicine; ATTEND Nurse Practitioner Family
PROC: 0FT44ZZ Resection of Gallbladder, Percutaneous Endoscopic Approach (ICD-10-PCS; principal; 2020-01-15 14:00)
DX: K80.12 Calculus of gallbladder with acute and chronic cholecystitis without obstruction (principal); Z21 Asymptomatic human immunodeficiency virus [HIV] infection status; K21.9 Gastro-esophageal reflux disease without esophagitis; R10.9 Unspecified abdominal pain
CPT/HCPCS: 36415; 76705-TC; 80053; 81003; 81015; 82550; 82553; 83036; 83690; 83735; 84484; 85025; 85610; 86850; 86900; 86901; 88304-TC; 93005; 94760; 99285-25; U0003